=== PATIENT | male | born 1990 | race Caucasian/White ===

== ENCOUNTER 2019-11-10 09:09 | Emergency (ER) | payer OTHER ==
[2019-11-10 09:16] VITALS: BP 134/75; PULSE 94; RESP 18; TEMP 99.3
--- NOTE | 2019-11-10 09:24 | ED ---
Upper Extremity HPI - General Chief Complaint: Extremity Injury, Upper Stated Complaint: Elbow injury Time Seen by Provider: 11/10/19 09:17 Source: patient, RN notes reviewed Mode of arrival: ambulatory Limitations: no limitations - History of Present Illness Initial Comments: This is a 29-year-old male presents emergency Department with chief complaint of right elbow pain. Patient states she slipped on some ice and fell drugs and his right elbow. Patient states woke up with worsening pain, swelling today he states he has slight numbness to his fifth digit on his right hand but that seems to be improving has full range of motion of his right hand. He states he has limited motion of right secondary to pain. There was a small abrasion happened during the fall. He states he has a tetanus which is up-to-date within last 5 years. Patient denies any head injury no loss conscious. Patient offers no other significant injury. - Related Data Home Medications Medication Instructions Recorded Confirmed Buprenorphine HCl/Naloxone HCl 1 film SL BID 11/10/19 11/10/19 [Suboxone 8 mg-2 mg Sl Film] Butalb/APAP/Caff 50-325-40Mg 1 tab PO Q4H PRN 11/10/19 11/10/19 [Fioricet 50-325-40] Cariprazine HCl [Vraylar] 1.5 mg PO DAILY 11/10/19 11/10/19 Naloxone HCl [Narcan] 4 mg NASAL ONCE PRN 11/10/19 11/10/19 buPROPion XL [Wellbutrin XL] 150 mg PO DAILY 11/10/19 11/10/19 Previous Rx's Medication Instructions Recorded Cephalexin [Keflex] 500 mg PO Q6HR #28 cap 11/10/19 Ibuprofen [Motrin] 600 mg PO Q8HR PRN #30 tab 11/10/19 Allergies Allergy/AdvReac Type Severity Reaction Status Date / Time No Known Allergies Allergy Verified 11/10/19 09:33 Review of Systems ROS Statement: Those systems with pertinent positive or pertinent negative responses have been documented in the HPI. ROS Other: All systems not noted in ROS Statement are negative. Past Medical History Past Medical History: No Reported History History of Any Multi-Drug Resistant Organisms: None Reported Past Surgical History: No Surgical Hx Reported Past Psychological History: Depression Smoking Status: Current every day smoker Past Alcohol Use History: Occasional Past Drug Use History: Opiates General Exam Limitations: no limitations General appearance: alert, in no apparent distress Head exam: Present: atraumatic, normocephalic, normal inspection Respiratory exam: Present: normal lung sounds bilaterally. Absent: respiratory distress, wheezes, rales, rhonchi, stridor Cardiovascular Exam: Present: regular rate, normal rhythm, normal heart sounds. Absent: systolic murmur, diastolic murmur, rubs, gallop, clicks Extremities exam: Present: other (Right elbow there is significant swelling noted, slight ecchymosis increased warmth with palpation there is a small abrasion noted with minimal surrounding erythema radial pulses equal bilaterally patient has lungs range of motion at the right elbow. No tenderness proximal or distal to the right elbow) Course Vital Signs 11/10/19 09:14 Temperature 99.3 F Pulse Rate 94 Respiratory 18 Rate Blood Pressure 134/75 O2 Sat by Pulse 99 Oximetry Medical Decision Making - Medical Decision Making X-rays were reviewed there is no evidence of fracture, no abnormal fat pad sign. Patient is right elbow contusion there is a small wound with surrounding erythema patient was placed on antibiotics at this time. Patient advised to follow-up with orthopedics if he has no improvement in the next couple days. Disposition Clinical Impression: Contusion of right elbow, Sprain of right elbow Disposition: HOME SELF-CARE Condition: Stable Instructions (If sedation given, give patient instructions): Swollen Joint (ED) Additional Instructions: Please return to the Emergency Department if symptoms worsen or any other concerns. Prescriptions: Cephalexin [Keflex] 500 mg PO Q6HR #28 cap Ibuprofen [Motrin] 600 mg PO Q8HR PRN #30 tab PRN Reason: Pain Is patient prescribed a controlled substance at d/c from ED?: No Referrals: None,Stated [Primary Care Provider] - 1-2 days Paulie Hutson MD [STAFF PHYSICIAN] - 1-2 days Time of Disposition: 10:18
--- NOTE | 2019-11-10 09:57 | XR ---
EXAMINATION TYPE: XR elbow complete RT , 3 VIEWS DATE OF EXAM ORDERED: 11/10/2019 HISTORY: pain. COMPARISON: None. FINDINGS: No fracture, dislocation or elbow joint effusion is seen. IMPRESSION: NO ACUTE OSSEOUS LESION.
== END 2019-11-10 10:22 | disposition home or self-care (01) ==
LOC: EC 09:09
DX: S53.401A Unspecified sprain of right elbow, initial encounter (principal); F32.9 Major depressive disorder, single episode, unspecified; F17.200 Nicotine dependence, unspecified, uncomplicated; Z79.899 Other long term (current) drug therapy; W00.0XXA Fall on same level due to ice and snow, initial encounter; Y92.009 Unspecified place in unspecified non-institutional (private) residence as the place of occurrence of the external cause
CPT/HCPCS: 99283

== ENCOUNTER 2019-12-05 18:56 | Emergency (ER) | payer OTHER ==
[2019-12-05 19:05] VITALS: BP 125/87; PULSE 97; RESP 18; TEMP 97.8
[2019-12-05] MEDS ORDERED: LIDOCAINE 1% INJ 10MG/ML (20 ML MDV) SQ ONE (19:21)
[2019-12-05] MEDS ORDERED: KETOROLAC 30 MG/ML 1 ML VIAL IM STA (20:33)
--- NOTE | 2019-12-05 20:33 | ED ---
Wound/Laceration HPI - General Chief Complaint: Wound/Laceration Stated Complaint: Finger laceration Time Seen by Provider: 12/05/19 19:07 Source: patient Mode of arrival: ambulatory Limitations: no limitations - History of Present Illness Initial Comments: Patient is a 29-year-old male presenting to emergency Department with a chief complaint of a laceration. Patient states he was using a wash box operator when he lacerated his right third and fourth distal digits. States laceration is on the palmar aspect. Denies any numbness and tingling but does report continues bleeding that he has not been able to put stopped. States his tetanus is up-to-date. States full range of motion in all his finger. States there is no foreign bodies present. Denies taking medications for the symptoms. Denies use of blood thinners. - Related Data Home Medications Medication Instructions Recorded Confirmed Buprenorphine HCl/Naloxone HCl 1 film SL BID 11/10/19 11/10/19 [Suboxone 8 mg-2 mg Sl Film] Butalb/APAP/Caff 50-325-40Mg 1 tab PO Q4H PRN 11/10/19 11/10/19 [Fioricet 50-325-40] Cariprazine HCl [Vraylar] 1.5 mg PO DAILY 11/10/19 11/10/19 Naloxone HCl [Narcan] 4 mg NASAL ONCE PRN 11/10/19 11/10/19 buPROPion XL [Wellbutrin XL] 150 mg PO DAILY 11/10/19 11/10/19 Previous Rx's Medication Instructions Recorded Cephalexin [Keflex] 500 mg PO Q6HR #28 cap 11/10/19 Ibuprofen [Motrin] 600 mg PO Q8HR PRN #30 tab 11/10/19 Allergies Allergy/AdvReac Type Severity Reaction Status Date / Time No Known Allergies Allergy Verified 12/05/19 19:05 Review of Systems ROS Statement: Those systems with pertinent positive or pertinent negative responses have been documented in the HPI. ROS Other: All systems not noted in ROS Statement are negative. Past Medical History Past Medical History: No Reported History History of Any Multi-Drug Resistant Organisms: None Reported Past Surgical History: No Surgical Hx Reported Past Psychological History: Anxiety, Depression Smoking Status: Former smoker Past Alcohol Use History: Occasional Past Drug Use History: None Reported, Opiates General Exam Limitations: no limitations General appearance: alert, in no apparent distress Head exam: Present: atraumatic, normocephalic, normal inspection Eye exam: Present: normal appearance Pupils: Present: normal accommodation ENT exam: Present: normal exam Neck exam: Present: normal inspection, full ROM Respiratory exam: Present: normal lung sounds bilaterally Cardiovascular Exam: Present: regular rate, normal rhythm, normal heart sounds Extremities exam: Present: full ROM, tenderness (Tenderness at the site of laceration.), normal capillary refill, other (+2 ulnar and radial pulses bilaterally.). Absent: normal inspection (2 cm laceration on his right fourth digit with a possible arterial bleed. 2 cm laceration, superficial on the palmar aspect of the right third digit.) Back exam: Present: normal inspection, full ROM Neurological exam: Present: alert, oriented X3 Psychiatric exam: Present: normal affect, normal mood Skin exam: Present: warm, dry, intact, normal color Course Vital Signs 12/05/19 19:02 Temperature 97.8 F Pulse Rate 97 Respiratory 18 Rate Blood Pressure 125/87 O2 Sat by Pulse 99 Oximetry Procedures - Laceration Laceration #1 Consent Obtained: verbal consent Indication: laceration Site: other (Fourth finger) Size (cm): 2 Description: linear, clean Depth: simple, single layer, arterial injury Sedation/Analgesia: none Anesthetic Used: lidocaine 1% Anesthesia Technique: nerve block Amount (mls): 5 Pre-repair: irrigated extensively Type of Sutures: nylon Size of Sutures: 4-0 Number of Sutures: 6 Technique: simple, interrupted, other (Figure 8 suture) Patient Tolerated Procedure: well, no complications Laceration #2 Consent Obtained: verbal consent Indication: laceration Site: other (3 digit) Size (cm): 2 Description: linear, clean Depth: simple, single layer Sedation/Analgesia: none Anesthetic Used: lidocaine 1% Anesthesia Technique: nerve block Amount (mls): 5 Pre-repair: irrigated extensively Type of Sutures: nylon Size of Sutures: 4-0 Number of Sutures: 4 Technique: simple, interrupted Patient Tolerated Procedure: well, no complications Medical Decision Making - Medical Decision Making patient is 29-year-old male presenting to emergency Department with a chief complaint laceration. Laceration on the palmar aspect of the distal end of the third and fourth digit. Arterial bleed noted on the fourth digit. 4 simple interrupted sutures were used on the laceration. Additional 2 figure 8 sutures were performed in order to stop the arterial bleed. Resolution of active bleeding was achieved. The digit was repaired with 4 simple interrupted sutures. Patient did have a digital block. Patient was given Toradol for pain control. Patient tolerated procedure well. She was advised to return to emergency department in 7-10 days for suture removal. No blood thinners. Laceration site was thoroughly irrigated affording repairs were commenced. Return parameters were thoroughly discussed with patient. Wound care was discussed with patient. Wound instructions were given. Case discussed with physician. Disposition Clinical Impression: Laceration Disposition: HOME SELF-CARE Condition: Stable Instructions (If sedation given, give patient instructions): Care For Your Stitches (DC), Laceration (DC) Additional Instructions: Follow wound care instructions. Return to emergency department if symptoms worsen. Return to ED for suture removal in 7-10 days. Is patient prescribed a controlled substance at d/c from ED?: No Referrals: None,Stated [Primary Care Provider] - 1-2 days Time of Disposition: 20:33
== END 2019-12-05 20:49 | disposition home or self-care (01) ==
LOC: EC 18:56
DX: S61.212A Laceration without foreign body of right middle finger without damage to nail, initial encounter (principal); S61.214A Laceration without foreign body of right ring finger without damage to nail, initial encounter; F32.9 Major depressive disorder, single episode, unspecified; F41.9 Anxiety disorder, unspecified; Z87.891 Personal history of nicotine dependence; Z79.899 Other long term (current) drug therapy; W26.0XXA Contact with knife, initial encounter; Y93.89 Activity, other specified; Y92.69 Other specified industrial and construction area as the place of occurrence of the external cause
CPT/HCPCS: 99282; 12002; 96372; J2001; J1885